=== PATIENT | female | born 1985 | race American Indian/Alaskan Native ===

== ENCOUNTER 2017-03-18 13:24 | Emergency (ER) | payer MEDICAID, OTHER ==
[2017-03-18 13:32] VITALS: BP 104/64
[2017-03-18 14:24] LABS: Basophils % (Auto) 0.6 % (0.0-1.8); Eosinophils % (Auto) 0.5 % (0.0-4.3); Hematocrit 34.4 % (30.3-42.9); Hemoglobin 11.2 gm/dl (10.1-14.3); Mean Corpuscular HGB Conc 33 % (30-34); Mean Corpuscular Hemoglobin 29 pg (28-32); Mean Corpuscular Volume 88 fl (79-97); Platelet Count 340 K/mm3 (140-440); Red Blood Count 3.92 M/mm3 (3.65-5.03); Red Cell Distribution Width 13.2 % (13.2-15.2)
[2017-03-18 14:47] LABS: Bilirubin,Urine NEG (Negative); Blood,Urine NEG (Negative); Ketones,Urine NEG (Negative); Leukocyte Esterase,Urine NEG (Negative); Mucus,Urine 3+ /HPF; Nitrite,Urine NEG (Negative)
--- NOTE | 2017-03-18 17:28 | Ultrasound Report ---
FINAL REPORT EXAM: US OB \T\lt; = 14 WEEKS FETUS HISTORY: Vaginal bleeding TECHNIQUE: Ultrasound obstetrical transabdominal PRIORS: None. FINDINGS: There is gestational sac within the uterus pole is identified with crown-rump length of 2.2 centimeters corresponding to estimated gestational age of 8 weeks 6 days with estimated date of delivery of October 22, 2017 cardiac activity is present with heart rate 178 beats per minute Right ovary is 3.1 x 2.2 x 2.0 centimeters. Left ovary is 2.1 x 1.3 x 0.9 centimeters there is a cystic appearing structure within the right ovary likely corpus luteum cyst Uterus is 9.2 centimeters in length IMPRESSION: Single live intrauterine gestation estimated at 8 weeks 6 days
--- NOTE | 2017-03-19 06:26 | Ultrasound Report ---
FINAL REPORT EXAM: US OB TRANSVAGINAL HISTORY: VAG BLEEDING TECHNIQUE: Transvaginal imaging was obtained the pelvis. Doppler imaging was obtained of the uterus. FINDINGS: There is an intrauterine gestational sac containing an embryo and yolk sac. The estimated gestational age of the IUP is 8 weeks 6 days based on sonographic criteria. The heart rate is 179 BPM. There is no evidence of a subchorionic hemorrhage. Free fluid is not seen. The maternal ovaries are appropriate size contour and echotexture. The left ovary measures 2.1 cm x 1.3 cm x 0.8 cm. The left ovary measures 3.1 cm x 2.1 cm x 2 cm. IMPRESSION: Single viable IUP of 8 weeks 6 days.
== END 2017-03-18 21:30 | disposition left against medical advice (07) ==
LOC: ED 13:24
DX: O46.91 Antepartum hemorrhage, unspecified, first trimester (principal); Z53.21 Procedure and treatment not carried out due to patient leaving prior to being seen by health care provider
CPT/HCPCS: 36415; 76801; 76817; 81001; 84702; 85025; 86850; 86900; 86901

== ENCOUNTER 2020-02-24 07:48 | Day surgery (SDC) | payer OTHER ==
--- NOTE | 2020-02-22 14:59 | History and Physical Report ---
History of Present Illness Date of examination: 02/20/20 History of present illness: Patient has been reassessed/reevaluated. H&P has been reviewed. No interval changes. This patient desires to discuss control methods and possibly start, continue, or change control. Patient desires sterilization. Discussed with various methods of contraceptives including abstinence, barrier and hormonal. Discussed oral, implantable, dermal, injectable,intravaginal and intrauterine methods. Patient declined temporary contraceptives. Discuss the permanency of sterilization. High risk of regret and 0.5 to 1% risk of failure. Questions answered Patient understands and desires to proceed. . The method she is currently using is nothing. She reports that in the past she used Depo Provera injection. Vital Signs: Patient Profile: 34 Years Old Female LMP: 02/19/2020 Height: 61 inches (154.94 cm) Weight: 125 pounds BMI: 23.62 Temp: 98.4 degrees F Menstrual History: LMP (date): 02/19/2020 Menarche: 14 On BCP's at conception: no Current Method of Contraception: None, nothing Date of Last Pap Smear: 06/15/2018 Past History : 3 Term Births: 3 Premature Births: 0 Living Children: 3 Para: 3 Mult. Births: 0 Prev : 3 Aborta: 0 Elect. Ab: 0 Spont. Ab: 0 Ectopics: 0 # 1 Delivery date: 2009 Weeks Gestation: term labor: no Delivery type: Delivery location: [facility] Sex: Female weight: 5#6 Comments: face presentation # 2 Delivery date: 10/14/2017 Weeks Gestation: 39 Delivery type: Anesthesia type: spinal Delivery location: [facility] weight: 5.75 Name: Shahram Comments: intrauterine growth restriction # 3 Delivery date: 12/16/2019 Weeks Gestation: 37 Delivery type: Anesthesia type: spinal Delivery location: [facility] Sex: male weight: 5.19 Comments: intrauterine growth restriction, 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 of genital herpes: yes Partner hx. of genital herpes: no Hx of STD: chlamydia Other: ct--2007 Current Allergies: No known allergies Past Medical History: Hyperthyroidism dx PCP 2015- no meds, never followed up - pt reports "it's cured since she delivered" Hyperthyroidism Family History Summary: General Comments - FH: lung cancer--mgm, m uncle breast cancer--m aunt no ovarian or colon cancer Social History: single, no etoh, no illicit drug use, no tobacco use Patient is single Smoking History: Patient has never smoked. Risk Factors: Smoked Tobacco Use: Never smoker Smokeless Tobacco Use: Never Passive smoke exposure: no Drug use: no HIV high-risk behavior: no Caffeine use: 2 drinks per day Alcohol use: no Exercise: no Seatbelt use: 100 % PAP Smear History: Date of Last PAP Smear: 06/15/2018 Review of Systems General Denies fever, chills, sweats, anorexia, fatigue, weakness, malaise, weight loss and sleep disorder. Denies vaginal discharge, incontinence, dysuria, hematuria, urinary frequency, amenorrhea, menorrhagia, abnormal vaginal bleeding, pelvic pain, genital sores, decreased libido, painful periods, painful sex, urinary urgency, hot flashes, vaginal dryness, vaginal itching and vaginal odor. CV Denies chest pains, palpitations, syncope, dyspnea on exertion, orthopnea, PND and peripheral edema. Resp Denies cough, dyspnea at rest, excessive sputum, hemoptysis, wheezing and pleurisy. GI Denies nausea, vomiting, diarrhea, constipation, change in bowel habits, abdominal pain, melena, hematochezia, jaundice, gas/bloating, indigestion/heartburn, dysphagia and odynophagia. Breast Denies left breast lump, right breast lump, nipple discharge, bloody discharge from nipple, breast pain, abnormal mammogram and breast enlargement. Psych Denies depression, anxiety, irritability and mood swings. [ Past History Past Medical History: other (SEE HPI) Past Surgical History: Other (SEE HPI) Social history: full code, other (SEE HPI) Medications and Allergies Allergies Allergy/AdvReac Type Severity Reaction Status Date / Time No Known Allergies Allergy Verified 02/24/20 09:04 Home Medications Medication Instructions Recorded Confirmed Last Taken Type No Known Home Medications [No 02/21/20 02/21/20 Unknown History Reported Home Medications] Review of Systems Constitutional: other (SEE HPI) Exam - Physical Exam Narrative exam: PHYSICAL EXAM HEENT: normocephalic, no lesions or deformities Skin no abnormal lesions or rashes Chest: respiratory effort normal, clear to auscultation CV: regular, normal S1-S2, no murmur, no rub, no gallop Abdomen: normal bowel sounds, soft, nontender, no HSM Well healed pfannenstiel scar Neuro: no gross anomalities Extremities: no clubbing, cyanosis, or edema 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 Cervix: normal appearance, no lesions. Uterus: normal size and position, midline, mobile Adnexae: no masses or tenderness Rectovaginal: exam defered Assessment and Plan - Patient Problems (1) Encounter for sterilization Current Visit: No Status: Acute Plan to address problem: Patient desires sterilization.Discuss the permanency of sterilization. High risk of regret and 0.5 to 1% risk of failure. Discussed options of tubal blockage and salpingectomy and it's possible benefit of preventing ovarian cancer and increased risks of bleeding during the procedure. Discuss the risks of the surgery including infection, bleeding possibly heavy enough to require a blood transfusion, possilble damage to bowel, bladder or ureter. Patient understands and desires to proceed with tubal blockage. (2) Disorder of thyroid Current Visit: No Status: Chronic
[~2020-02-24 07:48] MED LIST: CELECOXIB 200 MG CAP PO NR; GABAPENTIN 300 MG CAP PO NR; LACTATED RINGERS 1,000 ML IV SCH; MIDAZOLAM 2 MG/2 ML INJ IV NR
[2020-02-24] MEDS ORDERED: KETOROLAC 30 MG/1 ML INJ IV PRN (08:30)
[2020-02-24] MEDS ORDERED: ONDANSETRON 4 MG/2 ML INJ IV PRN (08:30)
[2020-02-24] MEDS ORDERED: BACTERIOSTATIC SODIUM CHLORIDE 0.9% 30 ML VIAL INFILTRATI ONE (08:30)
--- NOTE | 2020-02-24 08:31 | Anesthesia Consultation ---
Anesthesia Consult and Med Hx Date of service: 02/24/20 - Airway Anesthetic Teeth Evaluation: Good ROM Head & Neck: Adequate Mental/Hyoid Distance: Adequate Mallampati Class: Class II Intubation Access Assessment: Probably Good - Pulmonary Exam CTA: Yes - Cardiac Exam Cardiac Exam: RRR - Pre-Operative Health Status ASA Pre-Surgery Classification: ASA2 Proposed Anesthetic Plan: General - Pulmonary Hx Smoking: Yes (quit 1 yr ago) Hx Respiratory Symptoms: No - Cardiovascular System Hx Hypertension: No - Central Nervous System CVA: No - Gastrointestinal Hx Gastroesophageal Reflux Disease: No - Endocrine Hx Renal Disease: No Hx Liver Disease: No Hx Insulin Dependent Diabetes: No Hx Non-Insulin Dependent Diabetes: No Hx Thyroid Disease: No (hyperthyroid while but now resolved) - Other Systems Hx Obesity: No - Additional Comments Anesthesia Medical History Comments: No hx anesthetic complications.
--- NOTE | 2020-02-24 08:31 | Anesthesia Day of Surgery ---
Anesthesia Day of Surgery - Day of Surgery Patient Examined: Yes Patient H&P Reviewed: Yes Patient is NPO: Yes
[2020-02-24] MEDS ORDERED: BUPIVACAINE/PF (0.5%) 5 MG/1 ML 10 ML VIAL INFILTRATI ONE ×2 (09:40→10:20)
[2020-02-24] MEDS ORDERED: ONDANSETRON 4 MG/2 ML INJ ONE (09:41)
[2020-02-24] MEDS ORDERED: LIDOCAINE MPF (2%) 20 MG/1 ML VIAL 5 ML ONE (09:41)
[2020-02-24] MEDS ORDERED: propofoL 200 MG/20 ML VIAL IV ONE (09:41)
[2020-02-24] MEDS ORDERED: fentaNYL 100 MCG/2 ML INJ ONE (09:41)
[2020-02-24] MEDS ORDERED: dexAMETHasone 20 MG/5 ML VIAL ONE (09:41)
[2020-02-24] MEDS ORDERED: ROCURONIUM 50 MG/5 ML INJ IV ONE (09:41)
[2020-02-24] MEDS ORDERED: SODIUM CHLORIDE 0.9% IRR 1,500 ML BOTTLE IR ONE (10:21)
[2020-02-24] MEDS ORDERED: NEOSTIGMINE 10MG/10 ML INJ MDV ONE (10:36)
[2020-02-24] MEDS ORDERED: GLYCOPYRROLATE 0.4 MG/2 ML INJ ONE (10:36)
[2020-02-24] MEDS: HYDROmorphone 1 MG/1 ML INJ IV PRN ×2 (11:03→11:13)
[2020-02-24] MEDS ORDERED: MEPERIDINE 25 MG/1 ML INJ IV PRN (11:05)
[2020-02-24] MEDS ORDERED: KETOROLAC 30 MG/1 ML INJ ONE (11:10)
--- NOTE | 2020-02-24 11:10 | Operative Report ---
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 So small fundal myoma was also noticed. Fallopian tubes were normal bilaterally each fimbriated was seen. Specimen(s): None Patient was brought in the operating room. General anesthesia was induced without difficulty. She was placed in dorsal lithotomy position. Prepped and draped in usual sterile manner. Her urinary bladder with was emptied with a red rubber catheter. A [employer] uterine manipulator was placed for uterine manipulation. Attention was then switched to the patient's abdomen. An infra- umbilical incision was made with a scalpel. This incision was spread with a hemostat. A 5 mm trocar was placed in this incision while lifting high the abdominal wall. Intra-abdominal presence was verified directly with the laparoscope. The patient was then insufflated to approximately 3 L of CO2 gas. The patient's findings as noted above. An accessory puncture was made suprapubically. The 8 mm trocar was placed through this incision under direct visualization with no evidence of internal organ damage. Each of the fallopian tube were identified by its fimbriated end. A portion approximately 1-2 cm from each cornua was grasped with the Filshie clip applicator. Filshie clip was placed on each fallopian tube without any difficulty bilaterally. Good hemostasis was observed. At this time all instruments were removed. The patient was de-insufflated. The skin incisions were closed subcuticular with 4- 0 Vicryl. Marcaine was given subcuticularly for postoperative pain relief. The patient tolerated procedure well. She was awakened in the operating room and accompanied to the recovery room in good condition.
--- NOTE | 2020-02-24 11:13 | Short Stay Summary ---
Short Stay Documentation Date of service: 02/24/20 - History Past Medical History: other (SEE HPI) Past Surgical History: Other (SEE HPI) Social history: full code, other (SEE HPI) - Allergies and Medications Current Medications: Allergies No Known Allergies Allergy (Verified 02/24/20 09:04) Home Medications Medication Instructions Recorded Confirmed Last Taken Type oxyCODONE /ACETAMINOPHEN [Percocet 1 - 2 tab PO Q6HR PRN #15 tablet 02/24/20 Unknown Rx 5/325 mg] Active Medications Celecoxib (Celebrex) 200 mg PO PREOP NR Stop: 02/24/20 23:00 Last Admin: 02/24/20 08:30 Dose: 200 mg Documented by: Gabapentin (Gabapentin) 300 mg PO PREOP NR Stop: 02/24/20 23:00 Last Admin: 02/24/20 08:30 Dose: 300 mg Documented by: Hydromorphone HCl (Dilaudid) 0.5 mg IV Q10MIN PRN PRN Reason: Pain , Severe (7-10) Stop: 02/24/20 23:00 Lactated Ringer's (Lactated Ringers) 1,000 mls @ 100 mls/hr IV DIRECT TRAMAINE Stop: 02/24/20 23:59 Last Admin: 02/24/20 08:30 Dose: 100 mls/hr Documented by: Ketorolac Tromethamine (Toradol) 30 mg IV ONCE PRN PRN Reason: Pain, Moderate (4-6) Stop: 02/24/20 20:00 Meperidine HCl (Demerol) 12.5 mg IV ONCE PRN PRN Reason: Shivering Midazolam HCl (Versed) 2 mg IV PREOP NR Stop: 02/24/20 23:00 Last Admin: 02/24/20 09:34 Dose: 2 mg Documented by: Ondansetron HCl (Zofran) 4 mg IV ONCE PRN PRN Reason: Nausea And Vomiting Stop: 02/24/20 20:00 - Physical exam General appearance: no acute distress Integumentary: no rash HEENT: Atraumatic Lungs: Normal air movement Breasts: deferred Heart: Regular rate Gastrointestinal: normal, tenderness (Consistent with postop status), distended (Consistent with post op laparoscopy) Female Genitourinary: normal Rectal Exam: deferred Extremities: pulses intact - Brief post op/procedure progress note Date of procedure: 02/24/20 (See dictated operative note for details) - Hospital course Hospital course: Patient was admitted underwent the above him procedure without any complications. Patient will be discharged with follow-up in office in 1-2 weeks for postop check. - Disposition Condition at discharge: Good Disposition: DC-01 TO HOME OR SELFCARE - Discharge Diagnoses (1) Encounter for sterilization Status: Acute (2) Disorder of thyroid Status: Chronic Short Stay Discharge Plan Activity: advance as tolerated Diet: regular Wound: open to air Additional Instructions: Patient office for fever, chills, nausea, vomiting or pain uncontrolled by pain medication. Follow up with: IDANIA TORRES MD [Primary Care Provider] - 7 Days Prescriptions: oxyCODONE /ACETAMINOPHEN [Percocet 5/325 mg] 1 - 2 tab PO Q6HR PRN #15 tablet PRN Reason: Pain
[2020-02-24 12:16] VITALS: BP 156/75
--- NOTE | 2020-02-24 13:29 | Post Anesthesia Evaluation ---
- Post Anesthesia Evaluation Patient Participated: Yes Airway Patent: Yes Stable Respiratory Function: Yes Nausea/Vomiting: No Temp > 96.8F: Yes Pain Manageable: Yes Adequeate Hydration: Yes Anesthesia Complications: No
== END 2020-02-24 12:35 | disposition home or self-care (01) ==
LOC: OR 07:48
PROVIDERS: ATTEND Obstetrics & Gynecology
DX: Z30.2 Encounter for sterilization (principal); Z79.899 Other long term (current) drug therapy; Z87.891 Personal history of nicotine dependence; G43.909 Migraine, unspecified, not intractable, without status migrainosus; Z98.891 History of uterine scar from previous surgery; Z72.89 Other problems related to lifestyle; Z82.49 Family history of ischemic heart disease and other diseases of the circulatory system; Z83.3 Family history of diabetes mellitus; Z80.8 Family history of malignant neoplasm of other organs or systems
CPT/HCPCS: 58671; 81025; J1100; J1170; J1885; J2175; J2250; J2405; J2704; J2710; J3010; J7120

== ENCOUNTER 2022-01-18 00:12 | Emergency (ER) | payer OTHER ==
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
[2022-01-18 06:48] LABS: Basophils % (Auto) 0.5 % (0.0-1.8); Eosinophils % (Auto) 0.3 % (0.0-4.3); Hematocrit 32.9 % (30.3-42.9); Hemoglobin 10.3 gm/dl (10.1-14.3); Lymphocytes # (Auto) 2.2 K/mm3 (1.2-5.4); Mean Corpuscular HGB Conc 31 % (30-34); Mean Corpuscular Volume 84 fl (79-97); Monocytes # (Auto) 0.6 K/mm3 (0.0-0.8); Monocytes % (Auto) 6.2 % (0.0-7.3); Platelet Count 368 K/mm3 (140-440); Red Blood Count 3.92 M/mm3 (3.65-5.03); Red Cell Distribution Width 17.2 % (13.2-15.2)
[2022-01-18 07:06] LABS: Alanine Aminotransferase 29 units/L (7-56); Albumin 4.4 g/dL (3.9-5); Blood Urea Nitrogen 17 mg/dL (7-17); Calcium 9.3 mg/dL (8.4-10.2); Hemolysis Index 2
[2022-01-18 07:13] LABS: BUN/Creatinine Ratio 28
[2022-01-18 09:34] VITALS: BP 112/77
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
== END 2022-01-18 12:02 | disposition home or self-care (01) ==
LOC: ED 00:12
DX: R45.851 Suicidal ideations (principal); Z20.822 Contact with and (suspected) exposure to COVID-19; G43.909 Migraine, unspecified, not intractable, without status migrainosus; Z87.891 Personal history of nicotine dependence
CPT/HCPCS: 80053; 85025; 99284; U0003; 80320; G0480